=== PATIENT | female | born 1995 | race African-American/Black ===

== ENCOUNTER 2017-10-08 20:10 | Emergency (ER) | payer SELFPAY ==
[~2017-10-08] VITALS: Ht 160 cm; Wt 95.0 kg
[~2017-10-08 20:10] MED LIST: CIPR500T2 PO; PYRI200T4 PO
[2017-10-08 20:13] VITALS: BP 140/88; PULSE 90; RESP 16; TEMP 98; O2SAT 100
--- NOTE | 2017-10-08 21:59 | PD ---
HPI Chief Complaint: Back/ Neck Pain or Injury Time Seen by Provider: 21:52 Travel History International Travel<30 days: No Contact w/Intl Traveler<30days: No Traveled to known affect area: No History of Present Illness HPI 22-year-old black female presents emergency Department with complaints of lower back pain. She states that this has started approximately 3 days ago after lifting a heavy bag of laundry. She states that this was exacerbated again yesterday by lifting at work. She denies any acute bowel or bladder changes. She states the pain is across her lower back with radiation into her right posterior thigh. Pain is mild/moderate. Worse with bending and movement. Some relief of the remaining still. Denies any history of prior back problems. History Past Medical Histgory Medical History: Denies Significant Hx Tetanus Vaccination: < 5 Years Hx Chemotherapy: No Past Surgical History Surgical History: No Previous Surgery Social History Alcohol Use: Yes Tobacco Use: No Allergies-Medications (Allergen,Severity, Reaction): Coded Allergies: No Known Allergies (Unverified Adverse Reaction, Unknown, 10/08/17) Reported Meds & Prescriptions Reported Meds & Active Scripts Active Pyridium (Phenazopyridine HCl) 200 Mg Tab 200 Mg PO Q8 PRN Ciprofloxacin Hcl 500 Mg Tab 500 Mg PO BID 7 Days Review of Systems General / Constitutional: No: Fever Eyes: No: Visual changes HENT: No: Headaches Cardiovascular: No: Chest Pain or Discomfort Respiratory: No: Shortness of Breath Gastrointestinal: No: Abdominal Pain Genitourinary: No: Dysuria Musculoskeletal: No: Pain Skin: No Rash Neurologic: No: Weakness Psychiatric: No: Depression Endocrine: No: Polydipsia Hematologic/Lymphatic: No: Easy Bruising Physical Exam Narrative GENERAL: This is a well-nourished, well-developed patient, in no apparent distress. SKIN: No rashes, ecchymoses or lesions. Warm and dry. HEAD: Atraumatic. Normocephalic. EYES: PERRL, EOMI, no discharge or injection. No scleral icterus. EARS: Clear NOSE: Nasal turbinates appear normal. THROAT: Mucosa pink and moist. Airway patent. NECK: Trachea midline. supple, moves head freely. LUNGS: Clear to auscultation. CV: Regular in rhythm. ABDOMEN: Soft nontender. EXT: No clubbing cyanosis or edema. Back: No central bony tenderness to palpation of the dorsal lumbar spine. She has bilateral paralumbar tenderness more so on the right than left. Positive straight leg raise on the right. She is able to bend forward to 70. No saddle anesthesia. Able to heel and toe stand. Data Data Last Documented VS Vital Signs Date Time Temp Pulse Resp B/P (MAP) Pulse Ox O2 Delivery O2 Flow Rate FiO2 10/08/17 20:13 98.0 90 16 140/88 (105) 100 Room Air MDM Medical Screen Exam Complete: Yes Emergency Medical Condition: No Differential Diagnosis MDM: High Differential diagnoses: AAA,Fracture, sprain, strain, HNP, nerve or vascular injury, epidural abscess, pilonidal cyst, pyelonephritis, UTI, nephrolithiasis, ureterolithiasis Narrative Course A medical screening exam was performed: At the time of evaluation the presenting medical condition was determined not to be of an emergent nature. The patient was given the option of receiving additional care, but declined. Patient was given options for additional community resources from which to obtain care. The Patient Has Been advised to seek medical attention for their presenting complaint. The patient has been advised to return to the ER at any time if an emergent condition develops. Primary Impression: Encounter for medical screening examination Nicholas Scott Oct 08, 2017 21:59
== END 2017-10-08 22:20 | disposition left against medical advice (07) ==
LOC: NEPK 20:10
DX: M54.5 Low back pain (principal); Z79.899 Other long term (current) drug therapy
CPT/HCPCS: 99281